=== PATIENT | female | born 1970 | race African-American/Black ===

== ENCOUNTER 2017-04-28 01:40 | Emergency (ER) | payer BC, OTHER ==
[~2017-04-28 01:40] MED LIST: FEXO180 PO; IBUP800T23 PO; PRED5TAB PO
[2017-04-28 01:43] VITALS: BP 161/90; PULSE 84; RESP 12; TEMP 99; O2SAT 98
--- NOTE | 2017-04-28 02:02 | PD ---
HPI Chief Complaint: Allergic/Adverse Reaction Time Seen by Provider: 01:54 Travel History International Travel<30 days: No Contact w/Intl Traveler<30days: No Traveled to known affect area: No History of Present Illness HPI PATIENT WAS AT ALLERGY TESTING THIS MORNING WITH DR CASILLSA, AND WAS RELEASED AFTER OBSERVED FOR 40MINUTES THEN THROUGHOUT DAY STARTED TO DEVELOP HIVES THROGHOUT BODY, very itchy, currently denies any sob or wheezing, however became more concerned when she noted part of her lower lip swelling. partially alleviated with benadryl...no aggravating factors. PFSH Past Medical History Cancer: Yes (tumors) Cardiovascular Problems: No Diabetes: No Endocrine: No Genitourinary: No Hepatitis: No Hiatal Hernia: No Immune Disorder: No Musculoskeletal: No Neurologic: No Psychiatric: No Reproductive: Yes (tumors) Respiratory: No Thyroid Disease: No ?: Not Past Surgical History Abdominal Surgery: No Cardiac Surgery: No Ear Surgery: No Endocrine Surgery: No Eye Surgery: No Gynecologic Surgery: Yes (PARTIAL HYSTERECTOMY) Oral Surgery: No Pacemaker: No Thoracic Surgery: No Social History Alcohol Use: No Tobacco Use: No Substance Use: No Allergies-Medications (Allergen,Severity, Reaction): Coded Allergies: acetaminophen (Unverified Allergy, Severe, 02/01/17) hydromorphone (Unverified Allergy, Severe, GI, 02/01/17) oxycodone (Unverified Allergy, Severe, 02/01/17) diatrizoate meglumine (Unverified Allergy, Unknown, SHAKEY, HIVES, 02/01/17 ) gadobenic acid (Unverified Allergy, Unknown, SHAKEY, HIVES, 02/01/17) gadodiamide (Unverified Allergy, Unknown, SHAKEY, HIVES, 02/01/17) gadoteridol (Unverified Allergy, Unknown, SHAKEY, HIVES, 02/01/17) iodine (Unverified Allergy, Unknown, 02/01/17) iodixanol (Unverified Allergy, Unknown, SHAKEY, HIVES, 02/01/17) iohexol (Unverified Allergy, Unknown, SHAKEY, HIVES, 02/01/17) potassium iodide (Unverified Allergy, Unknown, 02/01/17) povidone-iodine (Unverified Allergy, Unknown, 02/01/17) sodium iodide (Unverified Allergy, Unknown, 02/01/17) sodium iodide (Unverified Allergy, Unknown, 02/01/17) Reported Meds & Prescriptions Reported Meds & Active Scripts Active Epipen 2-Stef Inj (Epinephrine) 0.3 Mg/0.3 Ml Pfpen 0.3 Mg IM ONCE PRN Pepcid (Famotidine) 40 Mg Tab 40 Mg PO HS Claritin (Loratadine) 10 Mg Cap 10 Mg PO DAILY Medrol Dosepak (Methylprednisolone) 4 Mg Dspk 4 Mg PO DIRECTED Per Pharmacist direction Ibuprofen 800 Mg Tab 800 Mg PO TID PRN Reported Prednisone 5 Mg Tab 5 Mg PO EVERY OTHER DAY Annmarie (Fexofenadine HCl) 180 Mg Tab 180 Mg PO DAILY Review of Systems Except as stated in HPI: all other systems reviewed are Neg General / Constitutional: No: Fever Eyes: No: Visual changes HENT: No: Headaches Cardiovascular: No: Chest Pain or Discomfort Respiratory: No: Shortness of Breath Gastrointestinal: No: Abdominal Pain Genitourinary: No: Dysuria Musculoskeletal: No: Pain Skin: Positive Rash, Positive Itching, Positive Hives Neurologic: No: Weakness Psychiatric: No: Depression Endocrine: No: Polydipsia Hematologic/Lymphatic: No: Easy Bruising Physical Exam Narrative GENERAL: SKIN: Warm and dry. HIVES THORUGOUT BODY, HEAD: Atraumatic. Normocephalic. EYES: Pupils equal and round. No scleral icterus. No injection or drainage. ENT: No nasal bleeding or discharge. Mucous membranes pink and moist....LOWER LIP LEFT CORNER SHOWED MILD EDEMA, NO UVULAR EDEMA, NECK: Trachea midline. No JVD. NO STRIDOR, NO WHEEZING, CARDIOVASCULAR: Regular rate and rhythm. RESPIRATORY: No accessory muscle use. Clear to auscultation. Breath sounds equal bilaterally. GASTROINTESTINAL: Abdomen soft, non-tender, nondistended. Hepatic and splenic margins not palpable. MUSCULOSKELETAL: Extremities without clubbing, cyanosis, or edema. No obvious deformities. NEUROLOGICAL: Awake and alert. No obvious cranial nerve deficits. Motor grossly within normal limits. Five out of 5 muscle strength in the arms and legs. Normal speech. PSYCHIATRIC: Appropriate mood and affect; insight and judgment normal. Data Data Last Documented VS Orders Orders Iv Access Insert/Monitor (04/28/17 02:02) Diphenhydramine Inj (Benadryl Inj) (04/28/17 02:15) Methylprednisolone So Succ Inj (Solumedr (04/28/17 02:15) Famotidine Inj (Pepcid Inj) (04/28/17 02:15) Sodium Chloride 0.9% Flush (Ns Flush) (04/28/17 02:15) Epinephrine (1:1000) Inj (Adrenalin (1:1 (04/28/17 02:15) Ed Discharge Order (04/28/17 03:32) MDM Medical Decision Making Medical Screen Exam Complete: Yes Emergency Medical Condition: Yes Medical Record Reviewed: Yes Differential Diagnosis allegic rxn v angioedema v hives Narrative Course after initial evaluaatioin patient was not having severe angioedema but started to show early signs of it, thus in addition to steroids, h1&h2 blockers, a epi pen jr will be used due to elevated bp noted. Diagnosis Primary Impression: ALLERGIC REACTION Patient Instructions: General Allergic Reaction (ED), General Instructions Scripts Epinephrine Inj (Epipen 2-Stef Inj) 0.3 Mg/0.3 Ml Pfpen 0.3 MG IM ONCE Y for ALLERGIC REACTION, #1 PACK 0 Refills Prov: Daniel Spears MD 04/28/17 Famotidine (Pepcid) 40 Mg Tab 40 MG PO HS, #7 TAB 0 Refills Prov: Daniel Spears MD 04/28/17 Loratadine (Claritin) 10 Mg Cap 10 MG PO DAILY for Allergy Management, #7 CAP 0 Refills Prov: Daniel Spears MD 04/28/17 Methylprednisolone Dosepak (Medrol Dosepak) 4 Mg Dspk 4 MG PO DIRECTED, #1 DSPK 0 Refills Per Pharmacist direction Prov: Daniel Spears MD 04/28/17 Disposition: 01 DISCHARGE HOME Condition: Stable Daniel Spears MD Apr 28, 2017 02:02
[2017-04-28] MEDS ORDERED: EPINEPHrine HCL (1:1000) 1 MG/ML VIAL IM ONE (02:15)
[2017-04-28] MEDS ORDERED: FAMOTIDINE 20 MG/2 ML VIAL IV PUSH ONE (02:15)
[2017-04-28] MEDS ORDERED: SODIUM CHLORIDE 0.9% FLUSH 10 ML FLUSH IV FLUSH PRN (02:15)
[2017-04-28] MEDS ORDERED: diphenhydrAMINE HCL 50 MG/ML VIAL IVP ONE (02:15)
[2017-04-28] MEDS ORDERED: methylPREDNISolone SOD SUCC 125 MG/2 ML VIAL IV PUSH ONE (02:15)
[2017-04-28 03:00] VITALS: BP 132/86; PULSE 84
[2017-04-28] MEDS ORDERED: FAMO1TAB73 PO (03:07)
[2017-04-28] MEDS ORDERED: MEDR4PAK PO (03:07)
[2017-04-28] MEDS ORDERED: CLAR10CA3 PO (03:07)
[2017-04-28] MEDS ORDERED: EPIP0.3I IM (03:08)
== END 2017-04-28 04:43 | disposition home or self-care (01) ==
LOC: NEPE 01:40
DX: T78.40XA Allergy, unspecified, initial encounter (principal); L29.9 Pruritus, unspecified; Z79.899 Other long term (current) drug therapy; Z88.5 Allergy status to narcotic agent; Z88.8 Allergy status to other drugs, medicaments and biological substances
CPT/HCPCS: 96372; 96374; 96375; 99284; J0171; J1200; J2930